=== PATIENT | female | born 1985 | race Caucasian/White ===

== ENCOUNTER 2016-10-29 16:48 | Inpatient (IN) | payer BC, OTHER ==
--- NOTE | 2016-10-29 17:24 | ED ---
General Adult HPI - General Chief complaint: Psychiatric Symptoms Stated complaint: Sucidal Time Seen by Provider: 10/29/16 17:12 Source: patient, RN notes reviewed Mode of arrival: ambulatory Limitations: no limitations - History of Present Illness Initial comments: Patient is a pleasant 31-year-old female presenting to the emergency Department with depression. Patient has been depressed for the past 4 months. Symptoms have been getting worse. Patient did have a baby 4 months ago. Patient also had depression with her previous . Patient does have thoughts of shooting herself in the head with a gun. Patient also has thoughts of placing a tarp in the bathroom so that there will not be a mess. No homicidal thoughts. No hallucinations. No physical complaints. No alcohol or street drug use. Patient does have a history of suicide attempt years ago. - Related Data Home Medications Medication Instructions Recorded Confirmed Ferrous Sulfate [Feosol] 325 mg PO DAILY 10/29/16 10/29/16 Lisinopril [Prinivil] 5 mg PO DAILY 10/29/16 10/29/16 Norethindrone [Dania] 0.35 mg PO DAILY 10/29/16 10/29/16 [id number]-[id number] Acid 1 cap PO DAILY 10/29/16 10/29/16 [-U Capsule (formulary)] SUMAtriptan SUCCINATE [Imitrex] 50 mg PO DAILY PRN 10/29/16 10/29/16 Sertraline [Zoloft] 50 mg PO DAILY 10/29/16 10/29/16 Allergies Allergy/AdvReac Type Severity Reaction Status Date / Time No Known Allergies Allergy Verified 10/29/16 17:28 Review of Systems ROS Statement: Those systems with pertinent positive or pertinent negative responses have been documented in the HPI. ROS Other: All systems not noted in ROS Statement are negative. Constitutional: Denies: fever Eyes: Denies: eye pain ENT: Denies: ear pain Respiratory: Denies: cough Cardiovascular: Denies: chest pain Endocrine: Denies: fatigue Gastrointestinal: Denies: abdominal pain Genitourinary: Denies: urgency Musculoskeletal: Denies: back pain Skin: Denies: rash Neurological: Denies: weakness Psychiatric: Reports: depression, suicidal thoughts. Denies: auditory hallucinations, visual hallucinations Past Medical History Additional Past Medical History / Comment(s): cardiomyopathy History of Any Multi-Drug Resistant Organisms: None Reported Past Surgical History: Section Past Psychological History: Depression Smoking Status: Current every day smoker Past Alcohol Use History: None Reported Past Drug Use History: None Reported General Exam Limitations: no limitations General appearance: alert, in no apparent distress Head exam: Present: atraumatic Eye exam: Present: normal appearance, PERRL ENT exam: Present: normal oropharynx Neck exam: Present: normal inspection Respiratory exam: Present: normal lung sounds bilaterally Cardiovascular Exam: Present: regular rate, normal rhythm GI/Abdominal exam: Present: soft. Absent: tenderness Extremities exam: Present: normal inspection Neurological exam: Present: alert Psychiatric exam: Present: depressed, suicidal ideation Skin exam: Present: normal color Course Vital Signs 10/29/16 17:08 Temperature 98.8 F Pulse Rate 85 Respiratory 20 Rate Blood Pressure 166/76 O2 Sat by Pulse 100 Oximetry Medical Decision Making - Medical Decision Making Patient was seen by mental services, who will admit. - Lab Data Lab Results 10/29/16 Range/Units 17:54 Urine Opiates Screen Not Detected (NotDetected) Ur Oxycodone Screen Not Detected (NotDetected) Urine Methadone Screen Not Detected (NotDetected) Ur Propoxyphene Screen Not Detected (NotDetected) Ur Barbiturates Screen Not Detected (NotDetected) U Tricyclic Antidepress Not Detected (NotDetected) Ur Phencyclidine Scrn Not Detected (NotDetected) Ur Amphetamines Screen Not Detected (NotDetected) U Methamphetamines Scrn Not Detected (NotDetected) U Benzodiazepines Scrn Not Detected (NotDetected) Urine Cocaine Screen Not Detected (NotDetected) U Marijuana (THC) Screen Not Detected (NotDetected) Disposition Clinical Impression: Suicidal ideation, Depression Disposition: ADMITTED IP TO THIS HOSP Referrals: Sandrita Johnson MD [Primary Care Provider] - 1-2 days Decision Time: 18:33
[2016-10-29] MEDS ORDERED: ACETAMINOPHEN TAB 325 MG TAB PO PRN (19:55)
[2016-10-29] MEDS ORDERED: MAGNESIUM HYDROXIDE 2,400 MG/10 ML CUP PO PRN (19:55)
[2016-10-29] MEDS ORDERED: LORazepam 1 MG TAB PO PRN (19:55)
[2016-10-29] MEDS ORDERED: MAG HYDROX/AL HYDROX/SIMETH 30 ML CUP PO PRN (19:55)
[2016-10-29] MEDS ORDERED: SUMAtriptan SUCCINATE 50 MG TAB PO PRN (19:56)
[2016-10-29] MEDS ORDERED: OLANZapine ODT 5 MG TAB PO PRN (19:58)
[2016-10-30 08:49] LABS: ALT 23 U/L (9-52); AST 28 U/L (14-36); Alkaline Phosphatase 96 U/L (38-126); Anion Gap 10 mmol/L; Blood Urea Nitrogen 13 mg/dL (7-17); Carbon Dioxide 23 mmol/L (22-30); Chloride 110 mmol/L (98-107); Glucose 90 mg/dL (74-99); Non-African American GFR(MDRD) >60 (>60 ml/min/1.73 sqM); Potassium 4.8 mmol/L (3.5-5.1); Sodium 143 mmol/L (137-145); Total Bilirubin 0.5 mg/dL (0.2-1.3); Total Protein 6.9 g/dL (6.3-8.2)
[2016-10-30 08:50] LABS: Anisocytosis Slight; Basophils # (A) 0.1 k/uL (0-0.2); Basophils % (A) 1 %; CH 19.4; CHCM 29.6; Eosinophils # (A) 0.2 k/uL (0-0.7); Eosinophils % (A) 3 %; HCT 42.9 % (34.0-46.0); HDW 3.03; HGB 12.1 gm/dL (11.4-16.0); Hypochromasia Marked; Luc # (Auto) 0.15; Luc % (Auto) 2; Lymphocytes # (A) 1.9 k/uL (1.0-4.8); Lymphocytes % (A) 22 %; MCH 18.6 pg (25.0-35.0); MCHC 28.3 g/dL (31.0-37.0); MCV 65.8 fL (80.0-100.0); Mean Platelet Volume 6.6; Microcytosis Marked; Monocytes # (A) 0.3 k/uL (0-1.0); Monocytes % (A) 4 %; Neutrophils # (A) 5.8 k/uL (1.3-7.7); Neutrophils % (A) 69 %; RBC 6.51 m/uL (3.80-5.40); RDW 17.8 % (11.5-15.5); WBC 8.5 k/uL (3.8-10.6); WBC (Perox) 8.34
[2016-10-30] MEDS: LISINOPRIL 5 MG TAB PO SCH (09:21)
[2016-10-30] MEDS: FERROUS SULFATE 325 MG TAB PO SCH (09:21)
[2016-10-30] MEDS: NORETHINDRONE 0.35 MG PO SCH (09:22)
[2016-10-30] MEDS ORDERED: traZODone HCL 50 MG TAB PO PRN (11:03)
[2016-10-30 12:03] LABS: Appearance,Urine Cloudy (Clear); Bilirubin,Urine Negative (Negative); Glucose,Urine (UA) Negative (Negative); Ketones,Urine Negative (Negative); Leukocyte Esterase,Urine Negative (Negative); Mucus,Urine Rare /hpf; Nitrite,Urine Negative (Negative); Particle Count 4911; Protein,Urine Trace (Negative); RBC,Urine >182 /hpf (0-5); Specific Gravity,Urine 1.019 (1.001-1.035); Squamous Epithelial Cell,Urine 5 /hpf (0-4); UA Billing (MACRO vs. MICRO) MICRO; Urobilinogen,Urine <2.0 mg/dL (<2.0); WBC,Urine 7 /hpf (0-5)
[2016-10-30] MEDS: VENLAFAXINE HCL ER 37.5 MG CAP PO SCH (12:04)
[2016-10-30] MEDS: PRENATAL VIT-IRON-FOLIC ACID 1 EACH CAP PO SCH (12:04)
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
[2016-10-31] MEDS: NORETHINDRONE 0.35 MG PO SCH (07:50)
[2016-10-31] MEDS: VENLAFAXINE HCL ER 37.5 MG CAP PO SCH (07:51)
[2016-10-31] MEDS: FERROUS SULFATE 325 MG TAB PO SCH (07:51)
[2016-10-31] MEDS: LISINOPRIL 5 MG TAB PO SCH (07:51)
[2016-10-31] MEDS: PRENATAL VIT-IRON-FOLIC ACID 1 EACH CAP PO SCH (11:13)
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
--- NOTE | 2016-10-31 14:40 | P.CONS ---
History of Present Illness - Reason for Consult Consult date: 10/31/16 Medical management Requesting physician: Chaya Griffin - Chief Complaint Severe depression - History of Present Illness This is a 31-year-old female was currently admitted to the psych unit for further evaluation of severe depression and suicidal thoughts. I was asked to see her for medical management. Apparently patient gave approximately 4 months ago and since then she's been struggling with depression and for the past few days she's been feeling progressively worse and apparently had thoughts about shooting herself in the head with a gun. She presented to the emergency room for further evaluation. She is currently admitted to the psych unit. She does not have any specific concerns at this time. She feels a lot better. She denies any urinary symptoms. Her urinalysis was strongly positive in the emergency room. Review of Systems Review of system: 14 points review of systems were obtained and were negative except to what were mentioned in the HPI. Past Medical History Additional Past Medical History / Comment(s): cardiomyopathy History of Any Multi-Drug Resistant Organisms: None Reported Past Surgical History: Section Past Psychological History: Depression Smoking Status: Current every day smoker Past Alcohol Use History: None Reported Past Drug Use History: None Reported Medications and Allergies Home Medications Medication Instructions Recorded Confirmed Type Ferrous Sulfate [Feosol] 325 mg PO DAILY 10/29/16 10/29/16 History Lisinopril [Prinivil] 5 mg PO DAILY 10/29/16 10/29/16 History Norethindrone [Dania] 0.35 mg PO DAILY 10/29/16 10/29/16 History Qpd-Lmge-Fevgc Acid 1 cap PO DAILY 10/29/16 10/29/16 History [-U Capsule (formulary)] SUMAtriptan SUCCINATE [Imitrex] 50 mg PO DAILY PRN 10/29/16 10/29/16 History Sertraline [Zoloft] 50 mg PO DAILY 10/29/16 10/29/16 History Allergies Allergy/AdvReac Type Severity Reaction Status Date / Time No Known Allergies Allergy Verified 10/29/16 17:28 Physical Exam Vitals: Vital Signs Temp Pulse Resp BP 10/31/16 07:53 87 119/71 10/31/16 05:32 98 F 49 L 16 106/56 10/30/16 21:39 82 138/63 10/30/16 18:27 86 16 120/77 General: The patient is awake and alert, in no distress Eye: there is normal conjunctiva bilaterally. Neck: The neck is supple, there is no JVD. Cardiovascular: Normal S1-S2, no S3-S4, no murmurs. Respiratory: Lungs clear to auscultation bilaterally Gastrointestinal: Abdomen is soft, nontender Musculoskeletal: There is no pedal edema. Neurological:. Speech is normal. Skin: Skin is warm and dry Results CBC & Chem 7: 10/30/16 07:58 10/30/16 07:58 Assessment and Plan Plan: 1. Severe depression with suicidal ideation: Currently admitted to the psych unit. Management by psychiatry. 2. Uncomplicated urinary tract infection: I will start her on Keflex and obtain urine culture 3. Essential hypertension: Blood pressure well-controlled Today, I reviewed her medication list and lab work results. Continue current regimen. Thank you very much for the consultation. I will continue to follow up on the patient on an as-needed basis
[2016-10-31] MEDS: CEPHALEXIN 500 MG CAP PO SCH ×2 (15:52→21:59)
[2016-11-01 06:31] VITALS: RESP 18; TEMP 97.9
--- NOTE | 2016-11-01 09:10 | P.DS ---
Providers Date of admission: 10/29/16 18:55 Expected date of discharge: 11/01/16 Attending physician: Chaya Griffin MD Consults: 10/29/16 19:55 Consult Physician Routine Consulting Provider: Joe Garcia Consult Reason/Comments: follow up H & P Do you want consulting provider notified?: Yes Primary care physician: Sandrita Johnson Hospital Course: Discharge Diagnoses: Major depressive disorder, recurrent, severe with peripartum onset Reason for Admission: Patient is a 31-year-old female who presented to the emergency room stating that she had thoughts about killing herself using a gun, she reported that she had been feeling depressed since the of her second child 4 months ago. Her depression had become increasingly more severe and she was feeling overwhelmed at home. She states she has been overly critical about how she is caring for her children and her home and states that every, and is taken as a criticism and she was feeling like a failure. She reported that she had suicidal thoughts in the past but never a plan because it was "never a good time". Patient states that she had a similar episode of depression following the of her first child but her symptoms were not as severe. She took medication for 1-1/2 months and felt that the Zoloft made her depression worse and she had more suicidal thoughts. Patient had started Zoloft this time shortly after her delivery and felt that it only made her depression worse and she was becoming increasingly angry and irritable. Patient has no prior suicide attempt history. She had not been sleeping well prior to her admission was feeling overwhelmed and unable to make decisions of any kind. She was caring for her children and her home but was very critical of how she was doing this. Hospital Course: Patient was admitted on a voluntary basis just placed on routine precautions, laboratory studies were ordered and group and activity therapy were also ordered. Patient was placed on Effexor due to her poor response and side effects from Zoloft and was begun on 37.5 mg of extended release in the morning. Patient was also placed on trazodone 50 mg on a when necessary basis to assist with her sleep. Patient reported after her first day on the unit that she had slept well and felt much more rested and felt more positive about the future. Patient continued to improve, participating in groups and activities and was also able to discuss incidents in her life that she felt she had never dealt with. Patient was also more positive in her outlook and was trying to be less critical about her care of her children, home. Patient reported no complaints of side effects with the Effexor and was not using the Desyrel while in the hospital as she reports she had been sleeping well. Patient's urinalysis revealed a possible urinary tract infection , urine culture at 24 hours showed no growth the patient was placed on Keflex 500 mg 3 times a day, final urine culture is not available at the time of discharge. Patient's vital signs were within normal limits and her blood pressure was well-controlled. Discharge Mental Status: Appearance/Attitude: Patient was neatly and appropriately dressed, made good eye contact and was cooperative. Behavior: Patient displayed no psychomotor agitation or retardation. Speech/Language: Patient's speech was spontaneous and of normal volume and rhythm and she was coherent. Thought Process: Patient was goal directed and there is no evidence of any circumstantial or tangential thought and no loose associations or flight of ideas. Thought Content: Patient denied any auditory or visual hallucinations no delusions or paranoid ideation were elicited. Patient was more positive in her outlook as well as being less critical about her childcare, how she cared for the home. Patient was also discussing prior traumas in the past and how she had never really effectively dealt with them. Patient felt able to cope, was no longer feeling overwhelmed and was able to make decisions. Patient was sleeping and eating well and states she felt rested. Suicidal/Homicidal Ideation: Patient denied any current suicidal or homicidal ideation. Sensorium/Cognition: Patient was alert and oriented to person, place, and time and her memory was grossly intact. Mood/Affect: Patient's mood was upbeat and positive and her affect was bright. Insight/Judgement: Patient's insight and judgment are intact. Risk Assessment: Patient is at low risk for self-harm behavior due to her supportive family, interest in therapy, compliance with medication. Discharge Plan: She will be discharged to return home to her and 2 children and she will continue on Effexor 37.5 mg extended release every morning and will also have trazodone 50 mg at bedtime on an as-needed basis. She will complete a 10 day course of Keflex 500 mg 3 times a day. Patient will continue her lisinopril 5mg daily, prenatalvitamins, iron supplement, Imitrex 50mg daily as needed and norethindrone 0.35mg daily. Patient was given a prescription for Effexor 37.5 mg extended release every morning, trazodone 50 mg at bedtime when necessary and Keflex 500 mg 3 times a day for 9 days to complete a 10 day course. Patient will follow-up with [facility]. She will also follow-up with her primary care provider. Patient was encouraged to keep her appointments and be compliant with her medication. We also discussed the need for exercise, good nutrition and I reviewed good sleep hygiene with the patient. Laboratory Last Values WBC 8.5 k/uL (3.8-10.6) 10/30/16 07:58 RBC 6.51 m/uL (3.80-5.40) H 10/30/16 07:58 Hgb 12.1 gm/dL (11.4-16.0) 10/30/16 07:58 Hct 42.9 % (34.0-46.0) 10/30/16 07:58 MCV 65.8 fL (80.0-100.0) L 10/30/16 07:58 MCH 18.6 pg (25.0-35.0) L 10/30/16 07:58 MCHC 28.3 g/dL (31.0-37.0) L 10/30/16 07:58 RDW 17.8 % (11.5-15.5) H 10/30/16 07:58 Plt Count 339 k/uL (150-450) 10/30/16 07:58 Neutrophils % 69 % 10/30/16 07:58 Lymphocytes % 22 % 10/30/16 07:58 Monocytes % 4 % 10/30/16 07:58 Eosinophils % 3 % 10/30/16 07:58 Basophils % 1 % 10/30/16 07:58 Neutrophils # 5.8 k/uL (1.3-7.7) 10/30/16 07:58 Lymphocytes # 1.9 k/uL (1.0-4.8) 10/30/16 07:58 Monocytes # 0.3 k/uL (0-1.0) 10/30/16 07:58 Eosinophils # 0.2 k/uL (0-0.7) 10/30/16 07:58 Basophils # 0.1 k/uL (0-0.2) 10/30/16 07:58 Hypochromasia Marked 10/30/16 07:58 Anisocytosis Slight 10/30/16 07:58 Microcytosis Marked 10/30/16 07:58 Sodium 143 mmol/L (137-145) 10/30/16 07:58 Potassium 4.8 mmol/L (3.5-5.1) 10/30/16 07:58 Chloride 110 mmol/L (98-107) H 10/30/16 07:58 Carbon Dioxide 23 mmol/L (22-30) 10/30/16 07:58 Anion Gap 10 mmol/L 10/30/16 07:58 BUN 13 mg/dL (7-17) 10/30/16 07:58 Creatinine 0.68 mg/dL (0.52-1.04) 10/30/16 07:58 Est GFR (MDRD) Af Amer >60 (>60 ml/min/1.73 sqM) 10/30/16 07:58 Est GFR (MDRD) Non-Af >60 (>60 ml/min/1.73 sqM) 10/30/16 07:58 Glucose 90 mg/dL (74-99) 10/30/16 07:58 Calcium 9.0 mg/dL (8.4-10.2) 10/30/16 07:58 Total Bilirubin 0.5 mg/dL (0.2-1.3) 10/30/16 07:58 AST 28 U/L (14-36) 10/30/16 07:58 ALT 23 U/L (9-52) 10/30/16 07:58 Alkaline Phosphatase 96 U/L (38-126) 10/30/16 07:58 Total Protein 6.9 g/dL (6.3-8.2) 10/30/16 07:58 Albumin 3.8 g/dL (3.5-5.0) 10/30/16 07:58 TSH 1.060 mIU/L (0.465-4.680) 10/30/16 07:58 Urine Color Yellow 10/30/16 11:00 Urine Appearance Cloudy (Clear) H 10/30/16 11:00 Urine pH 6.0 (5.0-8.0) 10/30/16 11:00 Ur Specific [place] 1.019 (1.001-1.035) 10/30/16 11:00 Urine Protein Trace (Negative) H 10/30/16 11:00 Urine Glucose (UA) Negative (Negative) 10/30/16 11:00 Urine Ketones Negative (Negative) 10/30/16 11:00 Urine Blood Large (Negative) H 10/30/16 11:00 Urine Nitrite Negative (Negative) 10/30/16 11:00 Urine Bilirubin Negative (Negative) 10/30/16 11:00 Urine Urobilinogen <2.0 mg/dL (<2.0) 10/30/16 11:00 Ur Leukocyte Esterase Negative (Negative) 10/30/16 11:00 Urine RBC >182 /hpf (0-5) H 10/30/16 11:00 Urine WBC 7 /hpf (0-5) H 10/30/16 11:00 Ur Squamous Epith Cells 5 /hpf (0-4) H 10/30/16 11:00 Urine Mucus Rare /hpf (None) H 10/30/16 11:00 Urine HCG, Qual Not Detected (Not Detectd) 10/29/16 17:54 Urine Opiates Screen Not Detected (NotDetected) 10/29/16 17:54 Ur Oxycodone Screen Not Detected (NotDetected) 10/29/16 17:54 Urine Methadone Screen Not Detected (NotDetected) 10/29/16 17:54 Ur Propoxyphene Screen Not Detected (NotDetected) 10/29/16 17:54 Ur Barbiturates Screen Not Detected (NotDetected) 10/29/16 17:54 U Tricyclic Antidepress Not Detected (NotDetected) 10/29/16 17:54 Ur Phencyclidine Scrn Not Detected (NotDetected) 10/29/16 17:54 Ur Amphetamines Screen Not Detected (NotDetected) 10/29/16 17:54 U Methamphetamines Scrn Not Detected (NotDetected) 10/29/16 17:54 U Benzodiazepines Scrn Not Detected (NotDetected) 10/29/16 17:54 Urine Cocaine Screen Not Detected (NotDetected) 10/29/16 17:54 U Marijuana (THC) Screen Not Detected (NotDetected) 10/29/16 17:54 Allergies No Known Allergies Allergy (Verified 10/29/16 17:28) Patient Condition at Discharge: Stable Plan - Discharge Summary New Discharge Prescriptions: New Cephalexin [Keflex] 500 mg PO TID #27 cap traZODone HCL [Desyrel] 50 mg PO HS PRN #14 tab PRN Reason: Insomnia Venlafaxine HCl ER [Effexor XR] 37.5 mg PO DAILY #14 cap Continue [id number] Acid [-U Capsule (formulary)] 1 cap PO DAILY Norethindrone [Dania] 0.35 mg PO DAILY Lisinopril [Prinivil] 5 mg PO DAILY Ferrous Sulfate [Iron (65 MG Elemental)] 325 mg PO DAILY SUMAtriptan SUCCINATE [Imitrex] 50 mg PO DAILY PRN PRN Reason: Migraine Headache Discontinued Sertraline [Zoloft] 50 mg PO DAILY Discharge Medication List Ferrous Sulfate [Iron (65 MG Elemental)] 325 mg PO DAILY 10/29/16 [History] Lisinopril [Prinivil] 5 mg PO DAILY 10/29/16 [History] Norethindrone [Dania] 0.35 mg PO DAILY 10/29/16 [History] Tyi-Addy-Gfojr Acid [-U Capsule (formulary)] 1 cap PO DAILY [History] SUMAtriptan SUCCINATE [Imitrex] 50 mg PO DAILY PRN 10/29/16 [History] Cephalexin [Keflex] 500 mg PO TID #27 cap 11/01/16 [Rx] Venlafaxine HCl ER [Effexor XR] 37.5 mg PO DAILY #14 cap 11/01/16 [Rx] traZODone HCL [Desyrel] 50 mg PO HS PRN #14 tab 11/01/16 [Rx] Follow up Appointment(s)/Referral(s): Sandrita Johnson MD [Primary Care Provider] - 1-2 days Patient Instructions/Handouts: How to Stop Smoking (GEN), Suicide Prevention for Adults (GEN) Activity/Diet/Wound Care/Special Instructions: No alcohol or street drugs, activity as tolerated, and diet as tolerated. Remove all firearms from the home. Follow up with outpatient provider as set up at time of discharge, follow up with your primary care doctor in 1-2 days. Call the crisis line or [phone] if having thoughts of hurting yourself or others Discharge Disposition: HOME SELF-CARE
[2016-11-01] MEDS: LISINOPRIL 5 MG TAB PO SCH (09:13)
[2016-11-01] MEDS: FERROUS SULFATE 325 MG TAB PO SCH (09:13)
[2016-11-01] MEDS: NORETHINDRONE 0.35 MG PO SCH (09:13)
[2016-11-01] MEDS: VENLAFAXINE HCL ER 37.5 MG CAP PO SCH (09:13)
[2016-11-01] MEDS: CEPHALEXIN 500 MG CAP PO SCH (09:13)
[2016-11-01 09:16] VITALS: BP 139/82; PULSE 122
== END 2016-11-01 10:00 | disposition home or self-care (01) | DRG 885 ==
LOC: EC 16:48 → 3MHU 18:55
PROVIDERS: ADMIT Psychiatry & Neurology Psychiatry; ATTEND Psychiatry & Neurology Psychiatry
DX: F33.2 Major depressive disorder, recurrent severe without psychotic features (principal); I42.9 Cardiomyopathy, unspecified; R45.851 Suicidal ideations; N39.0 Urinary tract infection, site not specified; F17.210 Nicotine dependence, cigarettes, uncomplicated; I10 Essential (primary) hypertension; Z79.899 Other long term (current) drug therapy; Z91.410 Personal history of adult physical and sexual abuse; Z91.5 Personal history of self-harm
CPT/HCPCS: 80053; 80306; 81001; 81025; 82075; 84443; 85025; 87086; 99285